=== PATIENT | female | born 1990 | race Hispanic/Latino ===

== ENCOUNTER 2022-09-19 07:58 | Day surgery (SDC) | payer MEDICAID ==
[2022-09-16 13:32] LABS: EOSINOPHILS % (AUTO) 1.9 % (0.0-8.0); HEMATOCRIT 40.1 % (36-48); LYMPHOCYTES % (AUTO) 33.8 % (21.0-51.0); MEAN CORPUSCULAR HEMOGLOBIN 31.3 pg (27.0-33.0); MEAN CORPUSCULAR HGB CONC 32.2 g/dL (32.0-36.0); MEAN CORPUSCULAR VOLUME 97.3 fL (79-99); NEUTROPHILS % (AUTO) 55.9 % (40.0-77.0); PLATELET COUNT (AUTO) 277 K/uL (130-400); RED BLOOD CELL COUNT(AUTO) 4.12 MIL/uL (4.00-5.50); RED CELL DISTRIBUTION WIDTH 12.7 % (11.0-15.5)
[2022-09-16 13:47] LABS: ALBUMIN 3.8 g/dL (3.5-5.0); BILIRUBIN,DIRECT 0.1 mg/dL (0.0-0.3); CREATININE 0.8 mg/dL (0.5-1.5)
[2022-09-16 13:59] VITALS: BP 115/78
[2022-09-19] VITALS (17 sets, daily range): BP systolic 103–151; BP diastolic 64–95
[~2022-09-19] VITALS: Ht 162.6 cm; Wt 74.7 kg
[~2022-09-19 07:58] MED LIST: DOLU50TA PO; EMTR1TAB12 PO; PREN-154 PO
[2022-09-19] MEDS ORDERED: LACTATED RINGERS 1000ML 1,000 ML IV ONE (08:13)
[2022-09-19] MEDS: CEFAZOLIN SODIUM 2 GM VIAL ONE ×2 (08:33→10:05)
[2022-09-19] MEDS ORDERED: HYDROMORPHONE 1 MG INJ ONE (09:33)
[2022-09-19] MEDS ORDERED: FAMOTIDINE 20MG VIAL IV ONE (09:34)
[2022-09-19] MEDS ORDERED: GLYCOPYRROLATE 1 MG/5 ML SYRINGE ONE (09:37)
[2022-09-19] MEDS ORDERED: FENTANYL CITRATE PF 50 MCG/1 ML 2ML VIAL ONE ×2 (09:37→11:23)
[2022-09-19] MEDS ORDERED: ROCURONIUM 10MG/1ML SYR 10 MG/ML ML ONE (09:37)
[2022-09-19] MEDS ORDERED: MIDAZOLAM HCL 1 MG/ML 2ML VIAL ONE (09:37)
[2022-09-19] MEDS ORDERED: LIDOCAINE PF 100MG/5ML (2%) SYRINGE 5ML ONE (09:37)
[2022-09-19] MEDS ORDERED: PROPOFOL 10 MG/ML 20ML VIAL IV ONE (09:39)
[2022-09-19] MEDS ORDERED: BUPIVACAINE/PF 0.5% 10ML VIAL ONE (09:56)
[2022-09-19] MEDS ORDERED: ONDANSETRON 4MG INJ ONE ×2 (10:58→11:23)
[2022-09-19] MEDS ORDERED: BUPIVACAINE/PF 0.5% 10ML VIAL IJ SCH (11:00)
[2022-09-19] MEDS ORDERED: KETOROLAC 30MG VIAL (30MG/ML) ONE (11:47)
[2022-09-19] MEDS ORDERED: MEPERIDINE-PF 25 MG/ML SYG ONE (11:50)
== END 2022-09-19 13:00 | disposition home or self-care (01) ==
LOC: DAH 07:58
PROVIDERS: ATTEND Surgery
DX: K43.6 Other and unspecified ventral hernia with obstruction, without gangrene (principal); Z20.822 Contact with and (suspected) exposure to COVID-19; Z21 Asymptomatic human immunodeficiency virus [HIV] infection status; Z79.899 Other long term (current) drug therapy; Z82.49 Family history of ischemic heart disease and other diseases of the circulatory system; Z83.3 Family history of diabetes mellitus; Z98.890 Other specified postprocedural states; Z87.891 Personal history of nicotine dependence; Z80.3 Family history of malignant neoplasm of breast
CPT/HCPCS: 80076; 80048; 84703; 85025; 87426; 36415; 49594; A6260; A4663; J7120 ×2; J3010 ×2; J1170; J3490 ×3; J2250; J2405 ×2; J1885; J2175; J0690; C1769 ×3; A4649; A4930 ×2; A4215; A4223; A4222; A4221; J7030; S0028; S0020; A4600; J2001; J2704